=== PATIENT | female | born 1975 | race Caucasian/White ===

== ENCOUNTER → 2020-10-05 12:31 | Outpatient (CLI) | payer BC, SELFPAY ==
[2020-10-05 20:05] LABS: Iron 111 ug/dL (37-170)
[2020-10-05 20:23] LABS: Free T4, Direct Thyroxine 0.95 ng/dL (0.78-2.19)
[2020-10-05 20:25] LABS: Cholesterol 190 mg/dL (140-199); HDL Cholesterol 50 mg/dL (40-60); LDL Cholesterol Calculated 114 mg/dL (<100); Triglycerides 132 mg/dL (35-150)
[2020-10-05 20:28] LABS: Vitamin D 25 Hydroxy (D3) 42.6 ng/mL (30.0-100.0)
[2020-10-05 20:37] LABS: Thyroid Stimulating Hormone 0.533 uIU/mL (0.47-4.68)
[2020-10-07 06:43] LABS: Triiodothyronine T3 Total 100 ng/dL (71-180)
== END ==
PROVIDERS: Visit Provider Registered Nurse General Practice
DX: D50.9 Iron deficiency anemia, unspecified (principal); E03.9 Hypothyroidism, unspecified; E55.9 Vitamin D deficiency, unspecified; E78.5 Hyperlipidemia, unspecified
CPT/HCPCS: 80061; 82306; 83540; 84439; 84443; 84480